=== PATIENT | male | born 1985 | race Caucasian/White ===

== ENCOUNTER 2018-10-10 07:50 | Emergency (ER) | payer SELFPAY ==
[~2018-10-10] VITALS: Ht 182.9 cm; Wt 107.0 kg
--- NOTE | 2018-10-10 08:53 | ED EENT ---
History of Present Illness General Chief Complaint: Eye Problems Stated Complaint: HEADACHE Source: patient, family History of Present Illness Date Seen by Provider: October 10, 2018 Time Seen by Provider: 08:48 Initial Comments This 32-year-old white male presents with protrusion of the right eye that has been progressive for the last year with associated headache. The patient has had intermittent blurred and double vision. He denies associated fever or chill. Past medical history of significance will testicle removal for torsion. The patient has not had imaging or evaluation by ophthalmology. Allergies and Home Medications Allergies Coded Allergies: No Known Drug Allergies (Unverified , 10/10/18) Home Medications No Active Prescriptions or Reported Meds Patient Home Medication List Home Medication List Reviewed: Yes Review of Systems Review of Systems Constitutional: No chills, No fever Eyes: See HPI, Blurred Vision Ears: Denies Dizziness Nose: see HPI, other (chronic sinus congestion) Mouth: no symptoms reported Throat: no symptoms reported Respiratory: No cough Cardiovascular: No chest pain Gastrointestinal: No abdominal pain, No nausea, No vomiting Musculoskeletal: no symptoms reported Skin: no symptoms reported Neurological: No Symptoms Reported Hematologic/Lymphatic: No Symptoms Reported Immunological/Allergic: no symptoms reported Past Msrtvgd-[id number]-[id number] Hx Past Med/Social Hx: Reviewed Nursing Past Med/Soc Hx Patient Social History Alcohol Use: Denies Use Recreational Drug Use: No Smoking Status: Never a Smoker Recent Foreign Travel: No Contact w/Someone Who Travel: No Physical Abuse: No Sexual Abuse: No Mistreated: No Fear: No Past Medical History Surgeries: Yes (L TESTICLE AND L KNEE) Respiratory: No Cardiac: Yes Hypertension Neurological: No Genitourinary: No Gastrointestinal: No Musculoskeletal: No Endocrine: No HEENT: No Cancer: No Integumentary: No Blood Disorders: No Physical Exam Vital Signs Vital Signs - First Documented 10/10/18 08:42 Temp 96.9 Pulse 98 Resp 18 B/P (MAP) 164/108 (126) Pulse Ox 98 Height, Weight, BMI Height: '" Weight: lbs. oz. kg; BMI Method: General Appearance: WD/WN, no apparent distress Eyes: right eye other (proptosis right eye) Ears: bilateral ear auricle normal Nose: normal inspection, other Mouth/Throat: normal mouth inspection (there is a sinus qualities of the patient's speech.) Neck: non-tender, full range of motion Cardiovascular: normal peripheral pulses, regular rate, rhythm Respiratory: chest non-tender, lungs clear Gastrointestinal: normal bowel sounds, soft Neurologic/Psychiatric: therapy tech II-XII nml as tested, no motor/sensory deficits, alert, normal mood/affect, oriented x 3 Skin: normal color, warm/dry Progress/Results/Core Measures Results/Orders Lab Results Laboratory Tests Test 10/10/18 08:36 Range/Units White Blood Count 8.8 4.3-11.0 10^3/uL Red Blood Count 5.44 4.35-5.85 10^6/uL Hemoglobin 16.7 13.3-17.7 G/DL Hematocrit 48 40-54 % Mean Corpuscular Volume 88 80-99 FL Mean Corpuscular Hemoglobin 31 25-34 PG Mean Corpuscular Hemoglobin Concent 35 32-36 G/DL Red Cell Distribution Width 13.1 10.0-14.5 % Platelet Count 244 130-400 10^3/uL Mean Platelet Volume 9.8 7.4-10.4 FL Neutrophils (%) (Auto) 64 42-75 % Lymphocytes (%) (Auto) 24 12-44 % Monocytes (%) (Auto) 8 0-12 % Eosinophils (%) (Auto) 3 0-10 % Basophils (%) (Auto) 0 0-10 % Neutrophils # (Auto) 5.7 1.8-7.8 X 10^3 Lymphocytes # (Auto) 2.1 1.0-4.0 X 10^3 Monocytes # (Auto) 0.7 0.0-1.0 X 10^3 Eosinophils # (Auto) 0.3 0.0-0.3 10^3/uL Basophils # (Auto) 0.0 0.0-0.1 10^3/uL Sodium Level 140 135-145 MMOL/L Potassium Level 3.1 L 3.6-5.0 MMOL/L Chloride Level 105 98-107 MMOL/L Carbon Dioxide Level 22 21-32 MMOL/L Anion Gap 13 5-14 MMOL/L Blood Urea Nitrogen 6 L 7-18 MG/DL Creatinine 0.96 0.60-1.30 MG/DL Estimat Glomerular Filtration Rate > 60 BUN/Creatinine Ratio 6 Glucose Level 115 H 70-105 MG/DL Calcium Level 9.6 8.5-10.1 MG/DL Corrected Calcium 9.4 8.5-10.1 MG/DL Total Bilirubin 0.7 0.1-1.0 MG/DL Aspartate Amino Transf (AST/SGOT) 13 5-34 U/L Alanine Aminotransferase (ALT/SGPT) 16 0-55 U/L Alkaline Phosphatase 85 40-136 U/L Total Protein 7.5 6.4-8.2 GM/DL Albumin 4.2 3.2-4.5 GM/DL My Orders Orders - BALDOMERO BELL MD Ekg Tracing (10/10/18 07:57) Ct Head/Maxillofacial W Wo (10/10/18 08:42) Cbc With Automated Diff (10/10/18 08:46) Comprehensive Metabolic Panel (10/10/18 08:46) Chest 1 View, Ap/Pa Only (10/10/18 08:46) Vital Signs/I&O 10/10/18 08:42 Temp 96.9 Pulse 98 Resp 18 B/P (MAP) 164/108 (126) Pulse Ox 98 Progress Progress Note : Time: 09:58 Progress Note The patient's CT demonstrated a marked maxillary sinus swelling with thinning of the midface bony structures. The maxillary sinus swelling on the right was felt to be the cause of the proptosis of the right eye. I discussed findings with the patient and his . I have called to arrange for transfer to ENT. 1012 a.m. I spoke with Dr. Hall (ENT ) and he made arrangements for the patient to be seen on Friday at by a pooling operator. I provided the patient with telephone numbers to make that phone call on Friday. In addition we have clouded the images to of the CTs. I will ask that the nurses treatment in the emergency department here and send that with him for K use review by the pooling operator. Departure Impression Primary Impression: Right maxillary sinus opacification Disposition: HOME, SELF-CARE Condition: Unchanged Transfer Time Spoke to Accepting Phy: 10:[address] Hall (ENT) NAY. Pt to be seen for close f/u Friday by ENT by calling [phone] Transfer Time: 10:16 Transfer Facility: Pt to be seen Friday by Recycling Program Manager Method of Transfer: Private Vehicle Departure-Patient Inst. Decision time for Depature: 10:16 Referrals: NO,LOCAL PHYSICIAN (PCP) Primary Care Physician Patient Instructions: Chronic Sinusitis Add. Discharge Instructions: Call the ENT clinic at on Friday morning ([phone]). Ask for the pooling operator and tell them you are to be seen Friday per Dr. Hall's request. All discharge instructions reviewed with patient and/or family. Voiced understanding. Scripts No Active Prescriptions or Reported Meds BALDOMERO BELL MD October 10, 2018 08:53
[2018-10-10 08:56] LABS: BASOPHILS % (AUTO) 0 % (0-10); EOSINOPHILS # (AUTO) 0.3 10^3/uL (0.0-0.3); EOSINOPHILS % (AUTO) 3 % (0-10); HEMATOCRIT 48 % (40-54); HEMOGLOBIN 16.7 G/DL (13.3-17.7); LYMPHOCYTES # (AUTO) 2.1 X 10^3 (1.0-4.0); LYMPHOCYTES % (AUTO) 24 % (12-44); MEAN CORPUSCULAR HEMOGLOBIN 31 PG (25-34); MEAN CORPUSCULAR HGB CONC 35 G/DL (32-36); MEAN CORPUSCULAR VOLUME 88 FL (80-99); MEAN PLATELET VOLUME 9.8 FL (7.4-10.4); MONOCYTES # (AUTO) 0.7 X 10^3 (0.0-1.0); MONOCYTES % (AUTO) 8 % (0-12); NEUTROPHILS # (AUTO) 5.7 X 10^3 (1.8-7.8); NEUTROPHILS % (AUTO) 64 % (42-75); PLATELET COUNT 244 10^3/uL (130-400); RED CELL DISTRIBUTION WIDTH 13.1 % (10.0-14.5); WHITE BLOOD COUNT 8.8 10^3/uL (4.3-11.0)
[2018-10-10 09:10] LABS: ALANINE AMINOTRANSFERASE 16 U/L (0-55); ALBUMIN 4.2 GM/DL (3.2-4.5); ALKALINE PHOSPHATASE 85 U/L (40-136); BILIRUBIN,TOTAL 0.7 MG/DL (0.1-1.0); BUN/CREATININE RATIO 6; CALCIUM 9.6 MG/DL (8.5-10.1); CARBON DIOXIDE 22 MMOL/L (21-32); CHLORIDE 105 MMOL/L (98-107); CREATININE SERUM 0.96 MG/DL (0.60-1.30); GFR ESTIMATED > 60; GLUCOSE 115 MG/DL (70-105); POTASSIUM 3.1 MMOL/L (3.6-5.0); SODIUM 140 MMOL/L (135-145); TOTAL PROTEIN 7.5 GM/DL (6.4-8.2)
--- NOTE | 2018-10-10 09:14 | Diagnostic Imaging Report ---
INDICATION: Eye swelling and headache. FINDINGS: The lungs appear clear without focal infiltrate or evidence of effusion. There is no pneumothorax. Heart size and mediastinal contours are appropriate. Pulmonary vascularity appears normal. No acute osseous abnormality demonstrated. Impression: 1. No radiographically evidence of an acute cardio pulmonary process. Dictated by: Dictated on workstation # [id number]
--- NOTE | 2018-10-10 09:40 | Diagnostic Imaging Report ---
EXAM: CT HEAD/MAXILLOFACIAL W WO INDICATION: Protrusion of the right globe. COMPARISON: None. FINDINGS: There is near complete opacification of the paranasal sinuses bilaterally, right greater than left. This opacification is mixed in attenuation, both pre-and postcontrast, representing a degree of hyperenhancement as well as hyperattenuating contents. There is marked expansion of the paranasal sinuses, most greatly affecting the right frontal sinus. Erosion of the ling of the sinus with imperceptible posterior frontal sinus ling. No abnormal intracranial enhancement or edema is identified by CT. Expansion of the right frontal sinus results in mass effect upon the right globe resulting in the proptosis. There is less mass effect from the left frontal sinus expansion upon the left globe. No intraorbital inflammatory changes or mass. No abnormal intracranial enhancement. No intracranial hemorrhage, extra-axial fluid collections or hydrocephalus. The mastoids are clear. IMPRESSION: 1. Diffuse paranasal sinus disease resulting in marked expansion of the frontal sinuses, right greater than left. 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 Sinonasal polyposis, eosinophilic mucin rhinosinusitis, sinonasal mucocele or non-Hodgkin lymphoma are considered less likely but could also be considered. 2. Thinning of the posterior ling of the frontal sinuses which are now imperceptible. There is no extra-axial fluid collection or intracranial enhancement identified. MRI without and with IV contrast would be more sensitive for intracranial extension. 3. Mass effect of the expansile frontal sinuses results in marked right proptosis. There is also mild mass effect upon the left globe. Dictated by: Dictated on workstation # [id number]
[2018-10-10 10:48] VITALS: BP 156/100
== END 2018-10-10 10:48 | disposition home or self-care (01) ==
LOC: ER 07:52
DX: J32.0 Chronic maxillary sinusitis (principal); I10 Essential (primary) hypertension; Z90.79 Acquired absence of other genital organ(s)
CPT/HCPCS: 36415; 70470; 70488; 71045; 80053; 85025